=== PATIENT | female | born 2000 | race Caucasian/White ===

== ENCOUNTER 2021-12-01 14:15 | Emergency (ER) | payer MEDICAID ==
[~2021-12-01] VITALS: Ht 157.5 cm; Wt 64.0 kg
[2021-12-01] MEDS ORDERED: KETOROLAC 30MG/ML VIAL IM ONE (15:00)
[2021-12-01 16:14] LABS: CLARITY URINE CLEAR (CLEAR); COLOR URINE YELLOW (YELLOW); KETONES URINE NEGATIVE (NEGATIVE); LEUKOCYTE ESTERASE URINE NEGATIVE (NEGATIVE); NITRITE URINE NEGATIVE (NEGATIVE); OCCULT BLOOD URINE NEGATIVE (NEGATIVE); PH URINE 7.5 (4.5-8.0); PROTEIN URINE NEGATIVE (NEGATIVE); UROBILINOGEN URINE 0.2 E.U./dL (0.2-1.0)
[2021-12-01] MEDS ORDERED: DOXYCYCLINE HYCLATE 100MG CAPSULE PO ONE (16:45)
[2021-12-01] MEDS ORDERED: CEFTRIAXONE SODIUM 500 MG/VIAL IM ONE (16:45)
[2021-12-01] MEDS ORDERED: DOXY-326 MT (17:20)
[2021-12-01] MEDS ORDERED: IBUP-2029 MT (17:20)
[2021-12-01 19:07] VITALS: BP 121/67
[2021-12-04 05:08] LABS: NEISSERIA GONORRHOEAE NAA Negative (Negative)
== END 2021-12-01 19:09 | disposition home or self-care (01) ==
LOC: ER 14:15
DX: R10.2 Pelvic and perineal pain (principal); N89.8 Other specified noninflammatory disorders of vagina; Z11.3 Encounter for screening for infections with a predominantly sexual mode of transmission; Z88.3 Allergy status to other anti-infective agents
CPT/HCPCS: 76830; 76856; 81003; 81025; 87210; 87491; 87591; 96372; 99284; J0696; J1885

== ENCOUNTER 2024-11-12 19:37 | Inpatient (IN) | payer SELFPAY ==
[~2024-11-12] VITALS: Ht 154.9 cm; Wt 69.9 kg
[~2024-11-12 19:37] MED LIST: DOXY-461 MT; IBUP-2029 MT
[2024-11-12 19:44] VITALS: O2SAT 99
[2024-11-12 20:15] LABS: BASOPHILS % 0.4 % (0.0-2.0); EOSINOPHILS % 0.1 % (0.0-5.0); HEMATOCRIT. 43.6 % (36.0-48.0); HEMOGLOBIN. 14.4 g/dL (12.0-16.0); LYMPHOCYTES % 13.3 % (20.0-50.0); MEAN CORPUSCULAR HEMOGLOBIN 28.5 pg (28.0-32.0); MEAN CORPUSCULAR VOLUME 86.3 fL (81.0-99.0); MONOCYTES % 8.3 % (2.0-8.0); NEUTROPHILS % 77.9 % (40.0-76.0); PLATELET 289 x1000/uL (130-400); RED BLOOD CELL COUNT 5.05 mill/uL (4.2-5.4); RED CELL DISTRIBUTION WIDTH 13.8 % (11.6-14.6); WHITE BLOOD COUNT 9.7 x1000/uL (4.5-11.0)
[2024-11-12 20:20] LABS: CLARITY URINE CLOUDY (CLEAR); COLOR URINE YELLOW (YELLOW); GLUCOSE URINE NEGATIVE (NEGATIVE); KETONES URINE NEGATIVE (NEGATIVE); LEUKOCYTE ESTERASE URINE NEGATIVE (NEGATIVE); NITRITE URINE NEGATIVE (NEGATIVE); OCCULT BLOOD URINE NEGATIVE (NEGATIVE); PH URINE >=9.0 (4.5-8.0); PROTEIN URINE TRACE (NEGATIVE); SPECIFIC GRAVITY URINE 1.023 (1.005-1.030)
[2024-11-12 20:24] LABS: CHLORIDE 104 mEq/L (98-107); SODIUM 137 mEq/L (136-145)
[2024-11-12 20:25] LABS: CALCIUM 9.3 mg/dL (8.7-10.4); CARBON DIOXIDE 25 mEq/L (21-32)
[2024-11-12 20:30] LABS: CREATININE 0.7 mg/dL (0.6-1.0); GLUCOSE 121 mg/dL (70-105); UREA NITROGEN BLOOD 9 mg/dL (9-23)
[2024-11-12 20:32] LABS: ALANINE AMINOTRANSFERASE 14 IU/L (10-49); ALBUMIN 4.6 g/dL (3.2-4.8); ASPARTATE AMINOTRANSFERASE 35 IU/L (<34); BILIRUBIN DIRECT 0.1 mg/dL (<=3.0); BILIRUBIN TOTAL 0.5 mg/dL (0.1-1.0); PROTEIN TOTAL 7.6 g/dL (6.0-8.3)
[2024-11-12 20:44] LABS: HCG SCREEN NEGATIVE
[2024-11-12 20:46] LABS: WBC URINE NONE SEEN /hpf (0-2)
[2024-11-12 20:47] LABS: BACTERIA URINE 1+; SQUAMOUS EPITHELIAL CELL URINE 2+ /lpf (RARE/1+)
[2024-11-12] MEDS: ONDANSETRON HCL 4MG/2ML INJ IV STA (20:52)
[2024-11-12] MEDS: ACETAMINOPHEN 1000MG/100ML 100 ML IV ONE (20:53)
[2024-11-12] MEDS: SODIUM CHLORIDE 0.9% 1,000 ML IV ONE (20:53)
[2024-11-12] MEDS: MORPHINE SULFATE 4 MG/ML INJ (FOR IV/IM USE) IV STA (20:53)
[2024-11-12] MEDS: SODIUM CHLORIDE 0.9% (SEPSIS BOLUS) IV ONE (22:48)
[2024-11-12] MEDS: METRONIDAZOLE 500 MG PREMIX 100 ML IV ONE (22:48)
[2024-11-12] MEDS: LEVOFLOXACIN 750MG PREMIX 150 ML IV ONE (23:48)
[2024-11-13] MEDS: IOHEXOL-300 100 ML BOTTLE ONE (00:48)
[2024-11-13] MEDS ORDERED: NA PHOS,M-B/NA PHOS,DI-BA ENEMA 118ML PR PRN (01:00)
[2024-11-13] MEDS ORDERED: ONDANSETRON HCL 4MG/2ML INJ IV PRN (01:00)
[2024-11-13 01:19] LABS: INFLUENZA TYPE A Presumptive Negative (Pres. Neg.); INFLUENZA TYPE B Presumptive Negative (Pres. Neg.); RESPIRATORY SYNCYTIAL VIRUS Not Detected (Not Detectd)
[2024-11-13] MEDS: SODIUM CHLORIDE 0.45% 1,000 ML IV SCH (01:20)
[2024-11-13] MEDS: PANTOPRAZOLE SODIUM 40 MG/VIAL IV NR (01:20)
[2024-11-13 02:30] VITALS: BP 109/72; PULSE 94; RESP 18; TEMP 36.5
[2024-11-13 04:00] VITALS: BP 111/72; PULSE 87; RESP 20; TEMP 36.4; O2SAT 97
[2024-11-13] MEDS: METRONIDAZOLE 500 MG PREMIX 100 ML IV SCH (05:22)
[2024-11-13] MEDS ORDERED: METRONIDAZOLE 500 MG PREMIX 100 ML IV SCH (06:00)
[2024-11-13] MEDS: ACETAMINOPHEN 325MG TABLET PO PRN (08:53)
[2024-11-13] MEDS: PANTOPRAZOLE SODIUM 40 MG/VIAL IV SCH (08:53)
[2024-11-13] MEDS ORDERED: NALOXONE HCL 0.4MG/ML VIAL IV PRN (10:00)
[2024-11-13] MEDS: GUAIFENESIN 200MG/10ML SUGAR FREE UDC PO NR (10:47)
[2024-11-13] MEDS: BENZONATATE 100MG CAPSULE PO SCH (10:47)
[2024-11-13 13:00] VITALS: BP 103/59; PULSE 104; RESP 20; TEMP 38.6; O2SAT 95
[2024-11-13] MEDS: HYDROCODONE/ACETAMINOPHEN 5/325MG TABLET PO PRN (14:25)
[2024-11-13 16:31] LABS: HEPATITIS B SURFACE ANTIGEN NEGATIVE (Negative)
[2024-11-13 16:52] LABS: HEPATITIS C AB NON REACTIVE (Neg) (Negative)
[2024-11-13 17:00] VITALS: BP 95/65; PULSE 102; RESP 20; TEMP 38.3; O2SAT 95
[2024-11-13] MEDS: GUAIFENESIN 200MG/10ML SUGAR FREE UDC PO PRN (18:34)
[2024-11-13] MEDS: BENZONATATE 100MG CAPSULE PO PRN (18:35)
[2024-11-13] MEDS: DEXT 5%/LACTATED RINGERS 1,000 ML IV SCH (18:59)
[2024-11-14] MEDS: LEVOFLOXACIN 500MG PREMIX 100 ML IV SCH (00:39)
[2024-11-14] MEDS: ACETAMINOPHEN 325MG TABLET PO PRN (05:20)
[2024-11-14 08:00] VITALS: BP 103/59; PULSE 82; RESP 16; TEMP 36.6
[2024-11-14 08:45] LABS: BASOPHILS % 0.3 % (0.0-2.0); EOSINOPHILS % 0.2 % (0.0-5.0); HEMATOCRIT. 36.8 % (36.0-48.0); HEMOGLOBIN. 12.5 g/dL (12.0-16.0); LYMPHOCYTES % 21.8 % (20.0-50.0); MEAN CORPUSCULAR HEMOGLOBIN 28.9 pg (28.0-32.0); MEAN CORPUSCULAR HGB CONC 33.9 g/dL (31.0-37.0); MEAN CORPUSCULAR VOLUME 85.3 fL (81.0-99.0); MEAN PLATELET VOLUME 8.4 fl (7.4-10.4); NEUTROPHILS % 65.7 % (40.0-76.0); PLATELET 237 x1000/uL (130-400); RED BLOOD CELL COUNT 4.32 mill/uL (4.2-5.4); RED CELL DISTRIBUTION WIDTH 13.6 % (11.6-14.6); WHITE BLOOD COUNT 7.1 x1000/uL (4.5-11.0)
[2024-11-14] MEDS ORDERED: DEXTL PO (09:15)
[2024-11-14] MEDS ORDERED: BENZ100C86 PO (09:15)
[2024-11-14] MEDS ORDERED: LEVO-65 PO (09:15)
[2024-11-14] MEDS ORDERED: METR-167 MT (09:15)
[2024-11-14 09:20] LABS: CARBON DIOXIDE 25 mEq/L (21-32); CHLORIDE 105 mEq/L (98-107); POTASSIUM 3.8 mEq/L (3.5-5.1); SODIUM 140 mEq/L (136-145)
[2024-11-14 09:21] LABS: CALCIUM 8.9 mg/dL (8.7-10.4)
[2024-11-14 09:25] LABS: CREATININE 0.8 mg/dL (0.6-1.0)
[2024-11-14 09:26] LABS: GLUCOSE 118 mg/dL (70-105); UREA NITROGEN BLOOD 5 mg/dL (9-23)
== END 2024-11-14 13:27 | disposition home or self-care (01) | DRG 720 ==
LOC: ER 19:37 → 6EST 23:50 → EDBEDREQTM 11-13 00:10 → EDBEDREQ 11-13 00:10 → ENRESERV 11-13 01:07 → ER 11-13 01:45
PROVIDERS: ADMIT Hospitalist; ATTEND Hospitalist
DX: A41.9 Sepsis, unspecified organism (principal); J12.9 Viral pneumonia, unspecified; J15.9 Unspecified bacterial pneumonia; K76.0 Fatty (change of) liver, not elsewhere classified; K52.9 Noninfective gastroenteritis and colitis, unspecified; G40.909 Epilepsy, unspecified, not intractable, without status epilepticus; Z79.899 Other long term (current) drug therapy; Z88.1 Allergy status to other antibiotic agents
CPT/HCPCS: 36415; 71045; 74177; 80048; 80076; 81003; 83605; 84145; 84703; 85025; 85379; 86705; 87340; 87420; 87426; 87804; 93005; 99285; A4606; J1956; J2270; J2405; J2470; J3490; J7030; J7121; Q9967; J0131